=== PATIENT | female | born 1960 | race Caucasian/White ===

== ENCOUNTER → 2017-03-01 | Outpatient (CLI) | payer BC ==
--- NOTE | 2017-03-01 09:13 | RAD ---
DATE: March 01, 2017 EXAM: DIGITAL SCREEN BILAT W/CAD HISTORY: Screening study. COMPARISON: December 13, 2008 This study was interpreted with the benefit of Computerized Aided Detection (CAD). FINDINGS: The breast parenchyma is heterogeneously dense. There is a new nodule within the upper outer quadrant of the right breast 7.5 cm from the nipple. Recommend focal compression views in the CC and MLO projections and a 90 degrees mediolateral view of the right breast for further evaluation followed by right breast sonography. The left breast is stable. No clustering of pleomorphic microcalcifications are evident on either side. IMPRESSION: New nodule of the right breast. Additional imaging is needed. BI-RADS CATEGORY: 0 INCOMPLETE: NEEDS ADDITIONAL IMAGING EVALUATION AND/OR PRIOR MAMMOGRAMS FOR COMPARISON. RECOMMENDED FOLLOW-UP: ADD ADDITIONAL IMAGING PQRS compliance statement: Patient information was entered into a reminder system with a target due date now for the next imaging study. Mammography is a sensitive method for finding small breast cancers, but it does not detect them all and is not a substitute for careful clinical examination. A negative mammogram does not negate a clinically suspicious finding and should not result in delay in biopsying a clinically suspicious abnormality. "Our facility is accredited by the [employer] Mammography [employer]." The patient's breast density may affect the ability of mammography to detect breast cancer. There are 4 categories of breast density, A, B, C and D. Breast density A means that most of the breast tissue is replaced with adipose tissue and therefore is not dense. Breast density B means that the breast tissue is mildly dense and scattered. Breast density C means that the breast tissue is heterogeneously dense. Breast density D means that the breast tissue is very dense. Breast densities especially C and D may decrease the sensitivity of mammography to detect breast cancer. Therefore, the patient may benefit from 3-D breast mammography (3D breast tomography) as a part of their screening mammogram. Insurance may or may not pay for this additional imaging. The patient's breast density based on today's mammogram is category C.
== END | disposition home or self-care (01) ==
LOC: MAMMO 07:43
PROVIDERS: ATTEND Family Medicine
DX: Z12.31 Encounter for screening mammogram for malignant neoplasm of breast (principal)
CPT/HCPCS: G0202; 77067

== ENCOUNTER → 2017-03-02 | Outpatient (CLI) | payer BC | END | disposition home or self-care (01) | LOC: MAMMO 12:43 | DX: N63.10 Unspecified lump in the right breast, unspecified quadrant (principal) | CPT/HCPCS: 76641; G0206 ==

== ENCOUNTER → 2017-03-03 | Outpatient (CLI) | payer BC | END | disposition home or self-care (01) | LOC: US 11:06 | DX: N63.11 Unspecified lump in the right breast, upper outer quadrant (principal) | CPT/HCPCS: 19081; 76942; 88305; C1713; G0206 ==